=== PATIENT | female | born 1995 | race Caucasian/White ===

== ENCOUNTER 2018-04-21 06:17 | Emergency (ER) | payer MEDICAID, OTHER ==
[~2018-04-21] VITALS: Ht 154.9 cm; Wt 66.2 kg
[2018-04-21 06:23] VITALS: BP 120/80; PULSE 84; RESP 18; Ht 154.9 cm; Wt 66.2 kg
[2018-04-21] MEDS ORDERED: CIPR500T4 PO (07:16)
--- NOTE | 2018-04-21 07:59 | ERD ---
ER Documentation Chief Complaint Chief Complaint burning/painful urination x 2 hours, blood in urine HPI 22-year-old female presenting with dysuria and frequency with some hematuria this morning. She has some mild suprapubic pressure. Denies any back pains. Has not had any fevers. Had this start today and never had before. Has not taken medications. Medical history is Crohn's. NKDA. Surgical history denies. Social history denies ROS All systems reviewed and are negative except as per history of present illness. Medications Home Meds Active Scripts Ciprofloxacin Hcl* (Ciprofloxacin Hcl*) 500 Mg Tablet, 500 MG PO BID for 7 Days, TAB Prov:HENRIQUE BLOCK PA-C 04/21/18 Allergies Allergies: Coded Allergies: No Known Drug Allergies (Verified Allergy, Unknown, 04/21/18) Uncoded Allergies: NONE (Allergy, Unknown, 04/21/18) PMhx/Soc History of Surgery: No Anesthesia Reaction: No Hx Neurological Disorder: No Hx Respiratory Disorders: No Hx Cardiac Disorders: No Hx Psychiatric Problems: No Hx Miscellaneous Medical Probl: Yes (chron's) Hx Alcohol Use: No Hx Substance Use: No Hx Tobacco Use: No FmHx Family History: No diabetes, No coronary disease, No other Physical Exam Vitals Vital Signs Date Temp Pulse Resp B/P (MAP) Pulse Ox O2 O2 Flow FiO2 Time Delivery Rate 04/21/18 97.5 84 18 120/80 100 06:23 (93) Physical Exam GENERAL: The patient is well-appearing, well-nourished, in no acute distress CHEST: Clear to auscultation bilaterally. There are no rales, wheezes or rhonchi. HEART: Regular rate and rhythm. No murmurs, clicks, rubs or gallops. ABDOMEN: Normal active bowel sounds. No distention. Mild pressure with palpat ion to the suprapubic region. No lateralized pain. BACK: No midline or flank tenderness. Results 24 hrs Laboratory Tests Test 04/21/18 07:06 POC Beta HCG, Qualitative NEGATIVE Procedures/MDM ER Course: There is some issues with the urinalysis results crossing over so urine was sent for culture. I did see the results on the machine which showed positive signs of urinary tract infection so we will treat with antibiotics. I have low suspicion for pyelonephritis. I have low suspicion for acute abdominal emergency. Patient is discharged with stricter precautions and told to follow- up with primary care within 1-2 days for close evaluation. Patient is told if symptoms change or worsen to return immediately to the ER. All questions answered at discharge Departure Diagnosis: Primary Impression: UTI (urinary tract infection) Condition: Stable Patient Instructions: Understanding Urinary Tract Infections (UTIs) Referrals: [facility] YOU HAVE RECEIVED A MEDICAL SCREENING EXAM AND THE RESULTS INDICATE THAT YOU DO NOT HAVE A CONDITION THAT REQUIRES URGENT TREATMENT IN THE EMERGENCY DEPARTMENT. FURTHER EVALUATION AND TREATMENT OF YOUR CONDITION CAN WAIT UNTIL YOU ARE SEEN IN YOUR DOCTORS OFFICE WITHIN THE NEXT 1-2 DAYS. IT IS YOUR RESPONSIBILITY TO MAKE AN APPOINTMENT FOR FOLOW-UP CARE. IF YOU HAVE A PRIMARY DOCTOR --you should call your primary doctor and schedule an appointment IF YOU DO NOT HAVE A PRIMARY DOCTOR YOU CAN CALL OUR PHYSICIAN REFERRAL HOTLINE AT IF YOU CAN NOT AFFORD TO SEE A PHYSICIAN YOU CAN CHOSE FROM THE FOLLOWING [facility] [address] [facility]. [facility] [address] [facility] [facility] [address] [facility] [facility] [address] [facility]. [facility] [address] [facility]. [facility]. [address] Additional Instructions: FOLLOW UP WITH YOUR PRIMARY CARE PHYSICIAN TOMORROW.Return to this facility if you are not improving as expected. HENRIQUE BLOCK PA-C Apr 21, 2018 07:59
== END 2018-04-21 07:32 | disposition home or self-care (01) ==
LOC: FTE 06:17
DX: N39.0 Urinary tract infection, site not specified (principal)
CPT/HCPCS: 81025; 87086; 99283